=== PATIENT | male | born 1975 | race African-American/Black ===

== ENCOUNTER 2020-10-02 20:11 | Emergency (ER) | payer OTHER ==
[2020-10-02 20:21] VITALS: BMI 26.9
[2020-10-02] MEDS ORDERED: ASPIRIN 81 MG CHEWABLE TABLETS PO ONE (20:41)
[2020-10-02] MEDS ORDERED: ASPIRIN 81 MG CHEWABLE TABLETS ONE (20:44)
[2020-10-02] MEDS ORDERED: ACETAMINOPHEN 325 MG TABLET (FP) PO ONE (21:01)
[2020-10-02] MEDS ORDERED: ACETAMINOPHEN 325 MG TABLET (FP) ONE (21:05)
[2020-10-02] MEDS ORDERED: CLOPIDOGREL BISULFATE 300 MG TABLET PO ONE (21:19)
[2020-10-02] MEDS ORDERED: HEPARIN NA (PORCINE) 5,000 UNITS/ML 1ML VIAL SQ ONE (21:21)
[2020-10-02] MEDS ORDERED: HEPARIN NA (PORCINE) 5,000 UNITS/ML 1ML VIAL ONE (21:25)
[2020-10-02] MEDS ORDERED: HEPARIN INFUSION - 25,000 UNITS/500 ML INFUS.BAG IVPB ONE (21:25)
[2020-10-02] MEDS ORDERED: HEPARIN NA (PORCINE) 5,000 UNITS/ML 1ML VIAL IVPUSH PRN ×4 (21:25→21:26)
[2020-10-02] MEDS ORDERED: CLOPIDOGREL BISULFATE 300 MG TABLET ONE (21:25)
[2020-10-02] MEDS ORDERED: HEPARIN - 25,000 UNIT in SODIUM CHLORIDE 495 ML IV SCH (21:30)
[2020-10-02 21:46] LABS: BASO % 0.2 % (0-2.0); EOS % 1.1 % (0-4.5); HEMATOCRIT 45.3 % (35.4-49); HEMOGLOBIN 15.2 GM/dL (11.7-16.9); LYMPH % 22.4 % (8-40); MCH 30.6 pg (25.7-33.7); MCHC 33.4 g/dl (32.0-35.9); MEAN CELL VOLUME 91.6 fl (80-96); MEAN PLT VOLUME 9.1 fl (7.5-11.1); MONO % 9.8 % (3.8-10.2); NEUT % 66.5 % (42.8-82.8); PLATELET COUNT 259 10^3/uL (134-434); RBC 4.95 M/mm3 (4.00-5.60); RDW 13.3 % (11.9-15.9); WHITE BLOOD COUNT 7.3 K/mm3 (4.0-10.0)
[2020-10-02 21:51] LABS: INR 1.09 (0.83-1.09); PROTHROMBIN TIME (PATIENT) 13.4 SEC (9.7-13.0)
[2020-10-02 21:54] LABS: ACTIVATED PTT 25.7 SECONDS (25.2-36.5)
[2020-10-02 22:09] LABS: CHLORIDE 103 mmol/L (98-107); SODIUM 139 mmol/L (136-145)
[2020-10-02 22:13] LABS: ALBUMIN 3.8 g/dl (3.4-5.0); BLOOD UREA NITROGEN 11.6 mg/dL (7-18); CALCIUM 9.2 mg/dL (8.5-10.1); GLUCOSE,RANDOM 83 mg/dL (74-106)
[2020-10-02 22:14] LABS: ANION GAP 8 MMOL/L (8-16); CO2 27 mmol/L (21-32)
[2020-10-02 22:15] LABS: SGOT/AST 29 U/L (15-37); SGPT/ALT 50 U/L (13-61)
[2020-10-02 22:16] LABS: CREATININE 1.4 mg/dL (0.55-1.3)
[2020-10-02 22:17] LABS: BILIRUBIN,TOTAL 1.6 mg/dL (0.2-1); TOT PROT 7.5 g/dl (6.4-8.2)
[2020-10-02 22:18] LABS: ALK PHOS 75 U/L (45-117)
[2020-10-02 22:20] VITALS: BP 134/90; PULSE 79; TEMP 97.8
== END 2020-10-02 22:23 | disposition short-term general hospital (02) ==
LOC: JER 20:11
PROC: 3E033GC Introduction of Other Therapeutic Substance into Peripheral Vein, Percutaneous Approach (ICD-10-PCS; principal; 2020-10-02)
PROC: 3E033GC Introduction of Other Therapeutic Substance into Peripheral Vein, Percutaneous Approach (ICD-10-PCS; 2020-10-02)
PROC: 3E033GC Introduction of Other Therapeutic Substance into Peripheral Vein, Percutaneous Approach (ICD-10-PCS; 2020-10-02)
PROC: 3E033GC Introduction of Other Therapeutic Substance into Peripheral Vein, Percutaneous Approach (ICD-10-PCS; 2020-10-02)
PROC: 3E033GC Introduction of Other Therapeutic Substance into Peripheral Vein, Percutaneous Approach (ICD-10-PCS; 2020-10-02)
DX: I24.9 Acute ischemic heart disease, unspecified (principal)
CPT/HCPCS: 36415; 71045-TC-FY; 80053; 82550; 82553; 84484; 85025; 85610; 85730; 93005; 93010; 99291; C9803; J1644; U0003; U0005

== ENCOUNTER 2020-11-03 21:28 | Inpatient (IN) | payer OTHER ==
[2020-11-03 21:40] VITALS: BMI 25.7
[2020-11-03] MEDS ORDERED: ACETAMINOPHEN INJECTION 100 ML IVPB ONE (22:04)
[2020-11-03] MEDS ORDERED: SODIUM CHLORIDE 2,722 ML IV ONE (22:21)
[2020-11-03 22:34] LABS: BASO % 0.6 % (0-2.0); HEMOGLOBIN 14.8 GM/dL (11.7-16.9); LYMPH % 3.3 % (8-40); MCH 30.9 pg (25.7-33.7); MCHC 34.3 g/dl (32.0-35.9); MEAN CELL VOLUME 89.9 fl (80-96); MEAN PLT VOLUME 8.3 fl (7.5-11.1); NEUT % 92.1 % (42.8-82.8); PLATELET COUNT 244 10^3/uL (134-434); RBC 4.78 M/mm3 (4.00-5.60); RDW 14.1 % (11.9-15.9); VENOUS BASE EXCESS 2.8 mmol/L (-2-2); VENOUS O2 SATURATION 60.4 % (70-80); VENOUS PCO2 39.7 mmHg (38-52); VENOUS PH 7.449 (7.310-7.410)
[2020-11-03] MEDS ORDERED: ACETAMINOPHEN 1000 MG/100 ML VIAL (NON FORMULARY) IVPB ONE (22:44)
[2020-11-03 22:46] LABS: INR 1.32 (0.83-1.09); PROTHROMBIN TIME (PATIENT) 15.8 SEC (9.7-13.0)
[2020-11-03 22:48] LABS: ACTIVATED PTT 28.9 SECONDS (25.2-36.5)
[2020-11-03 22:55] LABS: CHLORIDE 96 mmol/L (98-107); SODIUM 131 mmol/L (136-145)
[2020-11-03 22:57] LABS: ALBUMIN 3.4 g/dl (3.4-5.0); ANION GAP 10 MMOL/L (8-16); BLOOD UREA NITROGEN 10.4 mg/dL (7-18); CALCIUM 8.8 mg/dL (8.5-10.1); CO2 25 mmol/L (21-32)
[2020-11-03 22:58] LABS: GLUCOSE,RANDOM 105 mg/dL (74-106); MAGNESIUM 1.7 mg/dL (1.8-2.4)
[2020-11-03 23:00] LABS: SGOT/AST 22 U/L (15-37); SGPT/ALT 33 U/L (13-61)
[2020-11-03 23:01] LABS: CREATININE 1.6 mg/dL (0.55-1.3)
[2020-11-03 23:02] LABS: BILIRUBIN,TOTAL 0.8 mg/dL (0.2-1); TOT PROT 7.8 g/dl (6.4-8.2)
[2020-11-03 23:03] LABS: ALK PHOS 87 U/L (45-117)
[2020-11-03] MEDS ORDERED: ONDANSETRON 4 MG/2 ML VIAL ONE (23:21)
[2020-11-03] MEDS ORDERED: ONDANSETRON 4 MG/2 ML VIAL IVPUSH ONE (23:21)
[2020-11-03 23:45] LABS: ANISOCYTOSIS 0; MACROCYTOSIS 0; PLATELET ESTIMATE NORMAL
[2020-11-04 00:49] LABS: PH,URINE 6.5 (5.0-8.0); URINE APPEARANCE CLEAR; URINE BILIRUBIN NEGATIVE (NEGATIVE); URINE COLOR YELLOW; URINE GLUCOSE (UA) NEGATIVE (NEGATIVE); URINE KETONE NEGATIVE (NEGATIVE); URINE LEUK ESTERASE NEGATIVE (NEGATIVE); URINE NITRITE NEGATIVE (NEGATIVE); URINE PROTEIN NEGATIVE (NEGATIVE); URINE UROBILINOGEN 0.2 mg/dL (0.2-1.0)
[2020-11-04 01:32] LABS: CALCIUM 7.7 mg/dL (8.5-10.1)
[2020-11-04 01:36] LABS: CREATININE 1.4 mg/dL (0.55-1.3)
[2020-11-04] MEDS ORDERED: CEFTRIAXONE 1 GM in DEXTROSE 5%-WATER - 50 ML IVPB ONE (02:59)
[2020-11-04] MEDS ORDERED: AZITHROMYCIN IVPB 500 MG in DEXTROSE 5%-WATER - 250 ML IVPB ONE (02:59)
[2020-11-04] MEDS ORDERED: AZITHROMYCIN IVPB 500 MG/250 ML BAG IVPB ONE (03:27)
[2020-11-04] MEDS ORDERED: CEFTRIAXONE 1 GM/50 ML BAG ONE (03:27)
[2020-11-04] MEDS ORDERED: ACETAMINOPHEN 1000 MG/100 ML VIAL (NON FORMULARY) IVPB ONE (03:39)
[2020-11-04] MEDS ORDERED: ACETAMINOPHEN INJECTION 100 ML IVPB ONE (03:40)
[2020-11-04] MEDS ORDERED: HEPARIN NA (PORCINE) 5,000 UNITS/ML 1ML VIAL ONE (06:24)
[2020-11-04] MEDS: HEPARIN NA (PORCINE) 5,000 UNITS/ML 1ML VIAL SQ SCH ×3 (06:30→22:04)
[2020-11-04] MEDS ORDERED: MAGNESIUM SULF 50% (8.12 MEQ/2 ML-1 GM VIAL) IVPB ONE (06:41)
[2020-11-04 06:49] LABS: BASO % 0.4 % (0-2.0); HEMATOCRIT 46.5 % (35.4-49); HEMOGLOBIN 15.7 GM/dL (11.7-16.9); LYMPH % 4.5 % (8-40); MCH 31.1 pg (25.7-33.7); MCHC 33.7 g/dl (32.0-35.9); MEAN CELL VOLUME 92.2 fl (80-96); MEAN PLT VOLUME 8.9 fl (7.5-11.1); MONO % 4.1 % (3.8-10.2); PLATELET COUNT 238 10^3/uL (134-434); RBC 5.05 M/mm3 (4.00-5.60); RDW 14.4 % (11.9-15.9); WHITE BLOOD COUNT 15.5 K/mm3 (4.0-10.0)
[2020-11-04 07:05] LABS: CHLORIDE 102 mmol/L (98-107); SODIUM 131 mmol/L (136-145)
[2020-11-04 07:07] LABS: CALCIUM 7.9 mg/dL (8.5-10.1)
[2020-11-04 07:08] LABS: ALBUMIN 2.9 g/dl (3.4-5.0); BLOOD UREA NITROGEN 9.9 mg/dL (7-18); CO2 24 mmol/L (21-32); GLUCOSE,RANDOM 88 mg/dL (74-106)
[2020-11-04 07:11] LABS: CREATININE 1.5 mg/dL (0.55-1.3); PHOSPHOROUS 3.5 mg/dL (2.5-4.9)
[2020-11-04 07:12] LABS: BILIRUBIN,TOTAL 0.9 mg/dL (0.2-1); TOT PROT 7.9 g/dl (6.4-8.2)
[2020-11-04 07:14] LABS: ALK PHOS 84 U/L (45-117)
[2020-11-04 07:17] LABS: ANION GAP 4 MMOL/L (8-16); SGOT/AST 88 U/L (15-37); SGPT/ALT 35 U/L (13-61)
[2020-11-04] MEDS ORDERED: DOXYCYCLINE HYCLATE 100 MG VIAL ONE ×2 (09:37→20:42)
[2020-11-04] MEDS ORDERED: cefTRIAXone SODIUM 1 GM VIAL ONE (09:38)
[2020-11-04] MEDS ORDERED: DEXTROSE 5%-WATER - 50 ML IVPB ONE (09:38)
[2020-11-04] MEDS ORDERED: DEXTROSE 5%-WATER 100 ML IVPB ONE ×2 (09:38→20:42)
[2020-11-04] MEDS ORDERED: ACETAMINOPHEN 1000 MG/100 ML VIAL (NON FORMULARY) IVPB PRN (09:51)
[2020-11-04] MEDS: SODIUM CHLORIDE 1,000 ML IV SCH (09:54)
[2020-11-04] MEDS: DOXYCYCLINE INJECTION 100 MG in DEXTROSE 5%-WATER 100 ML IVPB SCH ×2 (09:55→22:05)
[2020-11-04] MEDS ORDERED: AZITHROMYCIN IVPB 500 MG in DEXTROSE 5%-WATER - 250 ML IVPB SCH (10:00)
[2020-11-04 10:48] LABS: ANISOCYTOSIS 0; HELMET CELLS 0; HOWELL-JOLLY BODIES 0; MACROCYTOSIS 0; OVALOCYTE 0; PLATELET ESTIMATE NORMAL; ROULEAU 0; SICKELED CELLS 0; TARGET CELLS 0; TEAR DROP CELLS 0; TOXIC GRANULATION 0
[2020-11-04] MEDS: CEFTRIAXONE 1 GM in DEXTROSE 5%-WATER - 50 ML IVPB SCH (14:02)
[2020-11-04] MEDS: ACETAMINOPHEN/CAFFEINE/BUTALBITAL 1 TAB PO PRN ×2 (15:38→19:53)
[2020-11-04] MEDS ORDERED: MORPHINE SULFATE 2 MG/ML VIAL IVPUSH ONE (21:45)
[2020-11-05] MEDS ORDERED: MELATONIN 5 MG TABLETS PO ONE (01:44)
[2020-11-05] MEDS: SODIUM CHLORIDE 1,000 ML IV SCH ×3 (02:01→18:09)
[2020-11-05] MEDS: ACETAMINOPHEN 1000 MG/100 ML VIAL (NON FORMULARY) IVPB PRN ×2 (05:43→12:30)
[2020-11-05] MEDS: HEPARIN NA (PORCINE) 5,000 UNITS/ML 1ML VIAL SQ SCH ×3 (06:03→21:13)
[2020-11-05] MEDS ORDERED: DOXYCYCLINE HYCLATE 100 MG VIAL ONE ×2 (09:39→21:03)
[2020-11-05] MEDS ORDERED: DEXTROSE 5%-WATER 100 ML IVPB ONE ×2 (09:40→21:03)
[2020-11-05] MEDS ORDERED: cefTRIAXone SODIUM 1 GM VIAL ONE (09:41)
[2020-11-05] MEDS ORDERED: DEXTROSE 5%-WATER - 50 ML IVPB ONE (09:41)
[2020-11-05] MEDS: DOXYCYCLINE INJECTION 100 MG in DEXTROSE 5%-WATER 100 ML IVPB SCH ×2 (09:46→21:13)
[2020-11-05] MEDS ORDERED: PT OWN MED DRAWER 7, Y5N ONE (10:17)
[2020-11-05] MEDS: CEFTRIAXONE 1 GM in DEXTROSE 5%-WATER - 50 ML IVPB SCH (12:02)
[2020-11-05 15:55] LABS: BASO % 0.1 % (0-2.0); HEMATOCRIT 43.9 % (35.4-49); HEMOGLOBIN 14.6 GM/dL (11.7-16.9); LYMPH % 5.2 % (8-40); MCH 30.7 pg (25.7-33.7); MCHC 33.4 g/dl (32.0-35.9); MEAN CELL VOLUME 91.9 fl (80-96); MEAN PLT VOLUME 9.7 fl (7.5-11.1); MONO % 5.8 % (3.8-10.2); NEUT % 88.9 % (42.8-82.8); PLATELET COUNT 257 10^3/uL (134-434); RBC 4.77 M/mm3 (4.00-5.60); RDW 14.9 % (11.9-15.9); WHITE BLOOD COUNT 11.5 K/mm3 (4.0-10.0)
[2020-11-05] MEDS: ACETAMINOPHEN/CAFFEINE/BUTALBITAL 1 TAB PO PRN (19:37)
[2020-11-05] MEDS ORDERED: ACETAMINOPHEN 325 MG TABLET (FP) PO ONE (22:16)
[2020-11-06] MEDS: HEPARIN NA (PORCINE) 5,000 UNITS/ML 1ML VIAL SQ SCH ×3 (05:06→21:09)
[2020-11-06] MEDS ORDERED: PT OWN MED DRAWER 7, Y5N ONE (06:51)
[2020-11-06] MEDS: ACETAMINOPHEN/CAFFEINE/BUTALBITAL 1 TAB PO PRN ×3 (06:53→15:10)
[2020-11-06] MEDS: SODIUM CHLORIDE 1,000 ML IV SCH ×2 (06:54→15:08)
[2020-11-06 10:25] LABS: BASO % 0.3 % (0-2.0); EOS % 0.2 % (0-4.5); HEMATOCRIT 40.7 % (35.4-49); HEMOGLOBIN 14.1 GM/dL (11.7-16.9); LYMPH % 8.1 % (8-40); MCH 31.2 pg (25.7-33.7); MCHC 34.5 g/dl (32.0-35.9); MEAN CELL VOLUME 90.4 fl (80-96); MEAN PLT VOLUME 9.3 fl (7.5-11.1); MONO % 8.3 % (3.8-10.2); NEUT % 83.1 % (42.8-82.8); PLATELET COUNT 259 10^3/uL (134-434); RBC 4.51 M/mm3 (4.00-5.60); RDW 14.6 % (11.9-15.9); WHITE BLOOD COUNT 11.2 K/mm3 (4.0-10.0)
[2020-11-06] MEDS ORDERED: cefTRIAXone SODIUM 1 GM VIAL ONE (10:35)
[2020-11-06] MEDS ORDERED: DEXTROSE 5%-WATER - 50 ML IVPB ONE (10:35)
[2020-11-06] MEDS: CEFTRIAXONE 1 GM in DEXTROSE 5%-WATER - 50 ML IVPB SCH (10:37)
[2020-11-06] MEDS: DOXYCYCLINE INJECTION 100 MG in DEXTROSE 5%-WATER 100 ML IVPB SCH (10:37)
[2020-11-06 10:53] LABS: BLOOD UREA NITROGEN 9.3 mg/dL (7-18); CALCIUM 8.1 mg/dL (8.5-10.1)
[2020-11-06 10:54] LABS: MAGNESIUM 2.4 mg/dL (1.8-2.4)
[2020-11-06 10:56] LABS: CREATININE 1.1 mg/dL (0.55-1.3); PHOSPHOROUS 2.5 mg/dL (2.5-4.9)
[2020-11-06] MEDS: AZITHROMYCIN IVPB 500 MG/250 ML BAG IVPB SCH (10:59)
[2020-11-06 11:04] LABS: ALBUMIN 2.3 g/dl (3.4-5.0); BILIRUBIN,TOTAL 0.4 mg/dL (0.2-1); TOT PROT 5.8 g/dl (6.4-8.2)
[2020-11-06 12:01] LABS: ANISOCYTOSIS 0; MACROCYTOSIS 0; PLATELET ESTIMATE NORMAL
[2020-11-06] MEDS ORDERED: SODIUM CHLORIDE 1,000 ML IV STA ×2 (12:01→20:42)
[2020-11-06 14:11] LABS: MYCOPLASMA PNEUMONIAE,IG G AB 336 U/mL (0-99); MYCOPLASMA PNEUMONIAE,IGM AB <770 U/mL (0-769)
[2020-11-06] MEDS ORDERED: diphenhydrAMINE HCL 25 MG CAPSULE (FP) PO ONE (22:36)
[2020-11-07] MEDS: SODIUM CHLORIDE 1,000 ML IV SCH ×2 (02:57→09:21)
[2020-11-07] MEDS: HEPARIN NA (PORCINE) 5,000 UNITS/ML 1ML VIAL SQ SCH (05:56)
[2020-11-07 07:35] LABS: BASO % 0.3 % (0-2.0); HEMATOCRIT 40.7 % (35.4-49); HEMOGLOBIN 13.8 GM/dL (11.7-16.9); LYMPH % 16.5 % (8-40); MCH 30.9 pg (25.7-33.7); MEAN PLT VOLUME 9.5 fl (7.5-11.1); MONO % 13.3 % (3.8-10.2); NEUT % 68.9 % (42.8-82.8); PLATELET COUNT 285 10^3/uL (134-434); RBC 4.48 M/mm3 (4.00-5.60); RDW 15.2 % (11.9-15.9); WHITE BLOOD COUNT 7.8 K/mm3 (4.0-10.0)
[2020-11-07 07:59] LABS: ALBUMIN 2.2 g/dl (3.4-5.0); BLOOD UREA NITROGEN 7.7 mg/dL (7-18); CALCIUM 7.7 mg/dL (8.5-10.1); MAGNESIUM 2.4 mg/dL (1.8-2.4)
[2020-11-07 08:02] LABS: BILIRUBIN,TOTAL 0.4 mg/dL (0.2-1); CREATININE 1.1 mg/dL (0.55-1.3); PHOSPHOROUS 2.7 mg/dL (2.5-4.9); TOT PROT 5.6 g/dl (6.4-8.2)
[2020-11-07] MEDS ORDERED: cefTRIAXone SODIUM 1 GM VIAL ONE (08:47)
[2020-11-07] MEDS ORDERED: DEXTROSE 5%-WATER - 50 ML IVPB ONE (08:47)
[2020-11-07 08:59] VITALS: BP 126/80; PULSE 62; TEMP 99.2
[2020-11-07] MEDS: CEFTRIAXONE 1 GM in DEXTROSE 5%-WATER - 50 ML IVPB SCH (09:15)
[2020-11-07 09:22] LABS: ANISOCYTOSIS 0; MACROCYTOSIS 0; PLATELET ESTIMATE NORMAL
[2020-11-07] MEDS: AZITHROMYCIN IVPB 500 MG/250 ML BAG IVPB SCH ×2 (09:59→10:26)
== END 2020-11-07 11:45 | disposition left against medical advice (07) | DRG 720 ==
LOC: JER 21:28 → JERBED 11-04 03:27 → J7W 11-04 06:54
PROVIDERS: ADMIT Internal Medicine; ATTEND Internal Medicine
DX: A41.9 Sepsis, unspecified organism (principal); J18.9 Pneumonia, unspecified organism; N17.9 Acute kidney failure, unspecified; M62.82 Rhabdomyolysis; E87.5 Hyperkalemia; E83.42 Hypomagnesemia
CPT/HCPCS: 36415; 70450-TC; 71045-TC-FY; 71250-TC; 74177-TC; 80048; 80053; 81003; 82550; 82553; 82803; 83605; 83690; 83735; 84100; 84132; 84484; 85025; 85610; 85730; 86713; 86738; 87040; 87045; 87046; 87086; 87177; 87186; 87209; 87804; 87807; 87880; 87899; 93005; 93010; 99285-25; C9803; J0131; J1644; Q9967; U0003; U0005

== ENCOUNTER 2022-03-09 14:26 | Emergency (ER) | payer OTHER ==
[2022-03-09 14:40] VITALS: BP 124/82; PULSE 69; RESP 16; TEMP 98.9; BMI 28.2
== END 2022-03-09 19:24 | disposition home or self-care (01) ==
LOC: JER 14:26
DX: R68.83 Chills (without fever) (principal); R53.83 Other fatigue; R51.9 Headache, unspecified; J02.9 Acute pharyngitis, unspecified
CPT/HCPCS: 0241U-QW; 71046-TC-FY; 93005; 93010; 99285-25

== ENCOUNTER 2022-03-21 10:15 | Emergency (ER) | payer OTHER ==
[2022-03-21 10:38] VITALS: BP 119/73; PULSE 73; RESP 18; TEMP 98.2; BMI 28.2
== END 2022-03-21 11:57 | disposition left against medical advice (07) ==
LOC: JER 10:15
DX: R06.00 Dyspnea, unspecified (principal)
CPT/HCPCS: 99281-25